=== PATIENT | female | born 1980 | race Caucasian/White ===

== ENCOUNTER 2017-06-13 12:32 | Emergency (ER) | payer OTHER ==
[~2017-06-13] VITALS: Ht 160 cm; Wt 63.5 kg
--- NOTE | 2017-06-13 12:58 | Emergency Room Report ---
History of Present Illness General Chief Complaint: Needlestick Present Illness HPI 37 yo female patient presents to ER s/p needle stick at work. Patient reports needle stuck her in her left hand index finger while starting an IV on a patient; patient is a nurse at [employer]. Reports needle contained patients blood when accident occurred. Denies active bleeding from site of injury. Reports she is up to date on vaccinations. Denies hx of HIV and HepC. Reports no medical problems. Denies . Reports needle was contaminated by a patient who's vaccination and health status are unknown; patient reports there was no report hx of HIV or hepatitis, states they are running tests on patient upstairs currently. Denies fever, chest pain, SOB. Patient History Past Medical History: see triage record Reviewed Nursing Documentation: PMH: Agreed, PSxH: Agreed Review of Systems All Other Systems: negative except mentioned in HPI Physical Exam Vital Signs Date Time Temp Pulse Resp B/P (MAP) Pulse Ox O2 Delivery O2 Flow Rate FiO2 06/13/17 13:06 98.5 81 16 116/72 98 Room Air 98.4 Sp02 EP Interpretation: reviewed, normal General Appearance: well appearing, no apparent distress, alert, GCS 15, non- toxic Head: normocephalic, atraumatic Eyes: bilateral eye normal inspection, bilateral eye PERRL ENT: hearing grossly normal, normal pharynx, no angioedema, normal voice, uvula midline, moist mucus membranes Neck: full range of motion Respiratory: lungs clear, normal breath sounds, no rhonchi, no respiratory distress, no accessory muscle use, no wheezing, speaking full sentences Cardiovascular #1: regular rate, rhythm, no edema Gastrointestinal: non tender, soft, no mass, non-distended, no guarding, no rebound Genitourinary: no CVA tenderness Musculoskeletal: back normal, digits/nails normal, gait/station normal, normal range of motion, non-tender Neurologic: alert, oriented x3, responsive, motor strength/tone normal, sensory intact Psychiatric: mood/affect normal Skin: no rash, other - 1mm puncture wound on radial aspect of index finger of left hand Lymphatic: no adenopathy Medical Decision Making PA Attestation Dr. Carlin is my supervising Physician whom patient management has been discussed with. Diagnostic Impression: Primary Impression: Needlestick injury accident with exposure to body fluid ER Course Pt. presents to the ED c/o needlestick at work. Ddx considered but are not limited to needlestick exposure to body fluid containing HepB, HepC, and/or HIV. Vital signs: are WNL, pt. is afebrile Ordered HepB, HepC, and HIV screening titers and urine . ER COURSE: Patient went back to work on 4 [facility] while results were pending. HIV serology negative HepB and HepC results are sent out. Patient labs will be sent out. Patient will be contacted with results. Urine negative. Informed patient of results. Reports incident report filed. Instructed to followup with employee [facility] for screening schedule. Informed by nurse that HepB and HepC results are sent out for completion. Will contact patient with results. Informed by nurse that the infected needle came from HIV negative patient. Patient does not require PEP treatment at this time. Discuss PEP with employee health and PCP at that time. Completed paperwork for at work injury. Patient up to date on vaccinations. Does not require tetanus shot at this time. Injury site not bleeding, no acute treatment required at this time. Patient returned to ER to complete discharge paperwork. Informed patient of results. Patient reports she will followup with employee [facility]. Patient reports no need for Rx at this time. Denies pain or swelling of hand. DISCHARGE: No Rx required at this time. At this time pt is stable for d/c to home. Patient is resting comfortably, in no acute distress, nontoxic appearing, talking without difficulty, smiling. Patient to take medications as instructed Will provide with patient care instructions and any necessary prescriptions. Care plan and follow-up instructions provided. Patient instructed to follow-up with primary care provider in 3 - 5 days. Followup with employee health. Patient questions asked and answered. Patient reports understanding and agreement to treatment plan. ER precautions given. Patient instructed to return to ER immediately for any new or worsening of symptoms including but not limited to increasing SOB, persistent fever. Labs Test 06/13/17 13:15 06/13/17 13:30 Urine HCG, Qualitative Negative (NEGATIVE) HIV (1&2) Antibody Rapid Negative (NEGATIVE) Disposition: HOME, SELF-CARE Condition: Stable Scripts No Active Prescriptions or Reported Meds Patient Instructions: Needle Stick Injury, [id number] Additional Instructions: Followup with primary care provider in 3 -5 days. Followup with employee health for schedule of repeat screening for disease. Take medications as directed. Patient questions asked and answered. ER precautions given, patient instructed to return to ER immediately for any new or worsening of symptoms. Hakeem Queen Jun 13, 2017 12:58
[2017-06-13 13:42] VITALS: BP 116/72
[2017-06-13 13:45] VITALS: BP 116/72
== END 2017-06-13 13:45 | disposition home or self-care (01) ==
LOC: EMR 13:09
DX: S61.231A Puncture wound without foreign body of left index finger without damage to nail, initial encounter (principal); W46.0XXA Contact with hypodermic needle, initial encounter; Y93.F9 Activity, other caregiving; Y92.239 Unspecified place in hospital as the place of occurrence of the external cause; Y99.0 Civilian activity done for income or pay
CPT/HCPCS: 81025; 86703; 86803; 87517; 99282